=== PATIENT | female | born 2000 | race Caucasian/White ===

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

== ENCOUNTER 2020-07-17 01:46 | Emergency (ER) | payer BC ==
[2020-07-17 01:53] VITALS: BP 132/91; PULSE 90; TEMP 99; BMI 33.5
== END 2020-07-17 01:59 | disposition home or self-care (01) ==
LOC: FER 01:46
DX: R60.0 Localized edema (principal)
CPT/HCPCS: 99281-25

== ENCOUNTER 2021-08-16 12:09 | Emergency (ER) | payer BC, OTHER ==
[2021-08-16 12:19] VITALS: BP 120/69; PULSE 98; TEMP 98.6; BMI 40.8
[2021-08-16] MEDS ORDERED: KETOROLAC TROMETHAMINE 30 MG/1 ML VIAL IM ONE (13:08)
[2021-08-16] MEDS ORDERED: KETOROLAC TROMETHAMINE 30 MG/1 ML VIAL ONE (13:11)
== END 2021-08-16 13:30 | disposition home or self-care (01) ==
LOC: FER 12:09
PROC: 3E023GC Introduction of Other Therapeutic Substance into Muscle, Percutaneous Approach (ICD-10-PCS; principal; 2021-08-16)
DX: S76.312A Strain of muscle, fascia and tendon of the posterior muscle group at thigh level, left thigh, initial encounter (principal); Y99.8 Other external cause status
CPT/HCPCS: 99284-25

== ENCOUNTER 2022-03-21 11:32 | Emergency (ER) | payer OTHER ==
[2022-03-21 11:53] VITALS: BP 137/75; PULSE 117; RESP 20; TEMP 100.2; BMI 38.6
[2022-03-21] MEDS ORDERED: KETOROLAC TROMETHAMINE 30 MG/1 ML VIAL IM ONE (12:10)
[2022-03-21] MEDS ORDERED: KETOROLAC TROMETHAMINE 30 MG/1 ML VIAL ONE (12:18)
== END 2022-03-21 12:35 | disposition home or self-care (01) ==
LOC: FER 11:32
PROC: 3E0233Z Introduction of Anti-inflammatory into Muscle, Percutaneous Approach (ICD-10-PCS; principal; 2022-03-21)
DX: J02.0 Streptococcal pharyngitis (principal); R50.9 Fever, unspecified
CPT/HCPCS: 99284-25

== ENCOUNTER 2022-04-09 00:20 | Emergency (ER) | payer OTHER ==
[2022-04-09 00:31] VITALS: BP 121/86; PULSE 94; RESP 16; TEMP 98.1; BMI 38.6
[2022-04-09] MEDS ORDERED: SODIUM CHLORIDE 1,000 ML IV ONE (00:31)
[2022-04-09] MEDS ORDERED: ONDANSETRON 4 MG/2 ML VIAL IVPUSH ONE (00:31)
[2022-04-09] MEDS ORDERED: ONDANSETRON 4 MG/2 ML VIAL ONE (00:48)
[2022-04-09 02:03] LABS: HEMATOCRIT 39.9 % (32.4-45.2); HEMOGLOBIN 13.6 GM/dL (10.7-15.3); MCH 29.5 pg (25.7-33.7); MEAN CELL VOLUME 86.9 fl (80-96); MEAN PLT VOLUME 8.4 fl (7.5-11.1); PLATELET COUNT 311 10^3/uL (134-434); RBC 4.59 M/mm3 (3.60-5.2); RDW 13.9 % (11.6-15.6); WHITE BLOOD COUNT 7.9 K/mm3 (4.0-10.0)
[2022-04-09 02:26] LABS: CHLORIDE 102 mmol/L (98-107); SODIUM 138 mmol/L (136-145)
[2022-04-09 02:28] LABS: ALBUMIN 3.4 g/dl (3.4-5.0); CALCIUM 8.8 mg/dL (8.5-10.1)
[2022-04-09 02:29] LABS: ANION GAP 8 MMOL/L (8-16); BLOOD UREA NITROGEN 14.3 mg/dL (7-18); CO2 28 mmol/L (21-32); GLUCOSE,RANDOM 112 mg/dL (74-106)
[2022-04-09 02:31] LABS: CREATININE 0.8 mg/dL (0.55-1.3)
[2022-04-09 02:32] LABS: SGOT/AST 22 U/L (15-37); SGPT/ALT 26 U/L (13-61)
[2022-04-09 02:33] LABS: BILIRUBIN,TOTAL 0.3 mg/dL (0.2-1); TOT PROT 6.7 g/dl (6.4-8.2)
[2022-04-09 02:34] LABS: ALK PHOS 56 U/L (45-117)
== END 2022-04-09 02:49 | disposition home or self-care (01) ==
LOC: FER 00:20
PROC: 3E033GC Introduction of Other Therapeutic Substance into Peripheral Vein, Percutaneous Approach (ICD-10-PCS; principal; 2022-04-09)
PROC: 3E0337Z Introduction of Electrolytic and Water Balance Substance into Peripheral Vein, Percutaneous Approach (ICD-10-PCS; 2022-04-09)
DX: R11.10 Vomiting, unspecified (principal); R19.7 Diarrhea, unspecified
CPT/HCPCS: 36415; 80053; 82550; 84484; 85027; 85379; 93005; 99284-25

== ENCOUNTER 2024-07-04 06:00 | Day surgery (SDC) | payer BC ==
[2024-06-29 14:56] VITALS: BMI 37.8
[2024-07-04] MEDS ORDERED: LIDOCAINE HCL 2% 100 MG/5 ML DISP.SYRIN ONE (07:29)
[2024-07-04] MEDS ORDERED: ONDANSETRON 4 MG/2 ML VIAL ONE (07:29)
[2024-07-04] MEDS ORDERED: MIDAZOLAM HCL 2 MG/2 ML SINGLE DOSE VIAL ONE (07:29)
[2024-07-04] MEDS ORDERED: DEXAMETHASONE SOD PHOSPHATE 4 MG/1 ML VIAL ONE (07:29)
[2024-07-04] MEDS ORDERED: PROPOFOL 20 ML ONE (07:29)
[2024-07-04] MEDS ORDERED: IBUPROFEN 600 MG TABLET (FP) PO PRN (07:50)
[2024-07-04] MEDS ORDERED: oxyCODONE HCL 5 MG TABLET PO PRN (07:50)
[2024-07-04] MEDS ORDERED: ONDANSETRON 4 MG/2 ML VIAL IVPUSH PRN ×2 (07:50→08:13)
[2024-07-04] MEDS ORDERED: ELECTROLYTE-148 SOLN 1,000 ML IV SCH (08:00)
[2024-07-04] MEDS ORDERED: ACETAMINOPHEN INJECTION 100 ML ONE (08:34)
[2024-07-04] MEDS: ACETAMINOPHEN 1000 MG/100 ML BAG IVPB ONE (08:35)
[2024-07-04] MEDS: LACTATED RINGERS SOLUTION 1,000 ML IV SCH (08:38)
[2024-07-04] MEDS ORDERED: IBUPROFEN 800 MG/8 ML IJ IVPB ONE (08:45)
[2024-07-04] MEDS: IBUPROFEN 800 MG/8 ML IJ IVPB PRN (08:49)
[2024-07-04 11:17] VITALS: BP 119/67; PULSE 73; RESP 16; TEMP 97.9
== END 2024-07-04 11:10 | disposition home or self-care (01) ==
LOC: JASU-SURG 06:00
PROVIDERS: ATTEND Obstetrics & Gynecology
PROC: 0UB98ZZ Excision of Uterus, Via Natural or Artificial Opening Endoscopic (ICD-10-PCS; principal; 2024-07-04 07:30)
DX: N93.9 Abnormal uterine and vaginal bleeding, unspecified (principal); N84.0 Polyp of corpus uteri
CPT/HCPCS: 81025; 87086; 88305-TC; 94760; J0131